=== PATIENT | male | born 2000 | race Caucasian/White ===

== ENCOUNTER 2021-02-15 13:03 | Emergency (ER) | payer OTHER ==
[~2021-02-15] VITALS: Ht 157.5 cm; Wt 61.2 kg
[2021-02-15 13:34] VITALS: BP 112/68
[2021-02-15] MEDS ORDERED: NOHOMEMEDICATIONS (13:37)
== END 2021-02-15 13:43 | disposition home or self-care (01) ==
LOC: ER 13:03
PROVIDERS: Emergency Medicine
DX: J06.9 Acute upper respiratory infection, unspecified (principal); Z20.822 Contact with and (suspected) exposure to COVID-19